=== PATIENT | female | born 1950 | race Caucasian/White ===

== ENCOUNTER → 2017-08-01 | Outpatient (CLI) | payer MEDICARE | LOC: COL.RAD 11:07 | DX: I65.23 Occlusion and stenosis of bilateral carotid arteries (principal); Z95.828 Presence of other vascular implants and grafts | CPT/HCPCS: Q9967 ==

== ENCOUNTER → 2018-02-15 | Outpatient (CLI) | payer MEDICARE, MEDICAID ==
[2018-02-15 23:31] LABS: FOLATE (FOLIC ACID) 8.1 ng/mL (7.0-31.4)
== END ==
LOC: COL.LAB 10:38
PROVIDERS: Psychiatry & Neurology Neurology
DX: G62.9 Polyneuropathy, unspecified (principal)

== ENCOUNTER → 2018-03-01 | Outpatient (CLI) | payer MEDICARE, MEDICAID ==
[~2018-03-01] VITALS: Ht 157.5 cm; Wt 76.4 kg
[~2018-03-01] MED LIST: ASPIRIN 81M81 MG/TA2 PO; COZAAR100 MG PO; MASON NATURAL2000 IU; NORVASC 5MG5 MG/TAB PO; PLAVIX 75MG TAB75 MG PO; SYNTHROID0.075 MG/T PO; TOPROL XL 25MG25 MG PO; ZOVIRAX 200MG200 MG PO
[2018-03-01 12:33] VITALS: BP 156/79; PULSE 66
[2018-03-01 14:10] VITALS: BP 163/94; PULSE 60
== END ==
LOC: COL.RAD 02-28 13:00
DX: M51.26 Other intervertebral disc displacement, lumbar region (principal)
CPT/HCPCS: J3301

== ENCOUNTER 2018-04-14 12:33 | Emergency (ER) | payer MEDICARE, MEDICAID ==
[~2018-04-14] VITALS: Ht 157.5 cm; Wt 71.4 kg
[2018-04-14 12:39] VITALS: BP 115/60; TEMP 98.3
[2018-04-14] MEDS ORDERED: PREDNISONE20 MG PO (13:12)
[2018-04-14] MEDS ORDERED: DOXYCYCLINE 10100 MG PO (13:12)
[2018-04-14 13:31] LABS: BASO % 0.3 % (0.0-2.0); EOS % 0.2 % (0-4.0); GRAN # 5.7 (1.4-6.5); GRAN % 64.2 % (42.2-75.2); HEMOGLOBIN 12.8 g/dl (12.5-16.0); LYMPH # 2.3 (1.2-3.4); LYMPH % 25.5 % (20.0-51.0); MEAN CELL VOLUME 96 fl (80.0-100.0); MEAN CORPUSCULAR HEMOGLOBIN 31 pg (27.0-31.0); MEAN CORPUSCULAR HGB CONC 33 g/dl (33.0-37.0); MEAN PLATELET VOLUME 10.1 fl (7.4-10.4); MONO # 0.8 (0.1-0.6); MONO % 9.2 % (1.7-9.3); PLATELET COUNT 248 K/mm3 (130-400); RED BLOOD COUNT 4.08 M/mm3 (4.10-5.30); REDCELL DISTRIBUTION WIDTH-CV 12.6 % (11.5-14.5)
[2018-04-14 13:42] LABS: ALBUMIN 3.9 gm/dL (3.5-5.0); BILIRUBIN,TOTAL 0.5 mg/dL (0.0-1.0); CALCIUM 9.1 mg/dL (8.4-10.2); CREATININE, serum 1.39 mg/dL (0.52-1.25); POTASSIUM 4.2 mmol/L (3.4-5.0); TOTAL PROTEIN 7.1 gm/dL (6.4-8.2)
[2018-04-14 14:23] VITALS: PULSE 80
== END 2018-04-14 14:23 | disposition home or self-care (01) ==
LOC: COL.ER 12:33
PROVIDERS: Emergency Medicine
DX: J20.9 Acute bronchitis, unspecified (principal); I25.10 Atherosclerotic heart disease of native coronary artery without angina pectoris; Z87.891 Personal history of nicotine dependence; Z95.1 Presence of aortocoronary bypass graft
CPT/HCPCS: J2405; J7030; J7512

== ENCOUNTER → 2020-05-01 | Outpatient (CLI) | payer MEDICARE, MEDICAID ==
[~2020-05-01] MED LIST changes: +DOXYCYCLINE 10100 MG PO; +PREDNISONE20 MG PO; +TUSS PO
== END ==
LOC: COL.RAD
DX: M51.26 Other intervertebral disc displacement, lumbar region (principal)

== ENCOUNTER → 2020-05-04 | Outpatient (CLI) | payer MEDICARE, MEDICAID ==
[~2020-05-04] VITALS: Ht 157.5 cm; Wt 78.0 kg
[2020-05-04 09:10] VITALS: BP 157/82; PULSE 63
[2020-05-04 10:45] VITALS: BP 170/80; PULSE 65
== END ==
LOC: COL.RAD 09:14
DX: M51.26 Other intervertebral disc displacement, lumbar region (principal); M51.36 Other intervertebral disc degeneration, lumbar region
CPT/HCPCS: J3301

== ENCOUNTER 2020-08-19 14:53 | Emergency (ER) | payer MEDICARE, MEDICAID ==
[~2020-08-19] VITALS: Ht 157.5 cm; Wt 69.5 kg
[~2020-08-19 14:53] MED LIST changes: -TUSS PO
[2020-08-19 15:15] VITALS: TEMP 97.8
[2020-08-19 16:14] LABS: BASO % 0.6 % (0.0-2.0); EOS # 0.2 (0.0-0.7); GRAN # 3.8 (1.4-6.5); GRAN % 54.8 % (42.2-75.2); HEMATOCRIT 41.9 % (37.0-47.0); HEMOGLOBIN 13.5 g/dl (12.5-16.0); LYMPH # 2.3 (1.2-3.4); MEAN CELL VOLUME 95 fl (80.0-100.0); MEAN CORPUSCULAR HEMOGLOBIN 31 pg (27.0-31.0); MEAN CORPUSCULAR HGB CONC 32 g/dl (33.0-37.0); MEAN PLATELET VOLUME 10.6 fl (7.4-10.4); MONO # 0.6 (0.1-0.6); MONO % 8.3 % (1.7-9.3); PLATELET COUNT 224 K/mm3 (130-400); RED BLOOD COUNT 4.41 M/mm3 (4.10-5.30); REDCELL DISTRIBUTION WIDTH-CV 12.7 % (11.5-14.5)
[2020-08-19 16:28] LABS: ALANINE AMINOTRANSFERASE 72 U/L (4-34); ALKALINE PHOSPHATASE 71 U/L (50-136); ANION GAP 7 mmol/L (7-16); AST,SGOT 62 U/L (15-37); BILIRUBIN,TOTAL 0.6 mg/dL (0.0-1.0); BLOOD UREA NITROGEN 16 mg/dL (7-17); CALCIUM 9.7 mg/dL (8.4-10.2); CARBON DIOXIDE 25 mmol/L (22-30); CHLORIDE 108 mmol/L (98-107); CREATININE, serum 1.03 (0.52-1.25); GLUCOSE 104 mg/dL (74-106); SODIUM 139 mmol/L (137-145); TOTAL PROTEIN 7.2 gm/dL (6.4-8.2)
[2020-08-19 16:42] LABS: TROPONIN-I < 0.012 ng/mL (0.000-0.035)
[2020-08-19] MEDS ORDERED: PREDNISONE20 MG PO (17:50)
[2020-08-19] MEDS ORDERED: TUSS PO ×2 (17:50→18:53)
[2020-08-19 18:09] VITALS: BP 147/81; PULSE 78
== END 2020-08-19 18:17 | disposition home or self-care (01) ==
LOC: COL.ER 14:53
PROVIDERS: Physician Assistant
DX: J42 Unspecified chronic bronchitis (principal); Z95.1 Presence of aortocoronary bypass graft; Z20.822 Contact with and (suspected) exposure to COVID-19; Z91.14 Patient's other noncompliance with medication regimen; Z95.5 Presence of coronary angioplasty implant and graft; Z87.891 Personal history of nicotine dependence; Z79.899 Other long term (current) drug therapy

== ENCOUNTER 2020-08-31 18:19 | Emergency (ER) | payer MEDICARE, MEDICAID ==
[~2020-08-31] VITALS: Ht 157.5 cm; Wt 76.1 kg
[~2020-08-31 18:19] MED LIST changes: +TUSS PO
[2020-08-31 20:27] LABS: BASO % 0.4 % (0.0-2.0); EOS # 0.1 (0.0-0.7); EOS % 1.1 % (0-4.0); GRAN # 5.8 (1.4-6.5); GRAN % 65.1 % (42.2-75.2); HEMATOCRIT 40.1 % (37.0-47.0); HEMOGLOBIN 12.9 g/dl (12.5-16.0); LYMPH # 1.9 (1.2-3.4); LYMPH % 21.2 % (20.0-51.0); MEAN CELL VOLUME 96 fl (80.0-100.0); MEAN CORPUSCULAR HEMOGLOBIN 31 pg (27.0-31.0); MEAN CORPUSCULAR HGB CONC 32 g/dl (33.0-37.0); MEAN PLATELET VOLUME 11.4 fl (7.4-10.4); MONO # 1.1 (0.1-0.6); MONO % 11.9 % (1.7-9.3); PLATELET COUNT 208 K/mm3 (130-400); REDCELL DISTRIBUTION WIDTH-CV 12.6 % (11.5-14.5)
[2020-08-31 20:36] LABS: COLLECTION METHOD CATHETER
[2020-08-31 20:48] LABS: ALANINE AMINOTRANSFERASE 79 U/L (4-34); ALBUMIN 4.1 gm/dL (3.5-5.0); ALKALINE PHOSPHATASE 86 U/L (50-136); ANION GAP 8 mmol/L (7-16); AST,SGOT 57 U/L (15-37); BLOOD UREA NITROGEN 23 mg/dL (7-17); CALCIUM 9.5 mg/dL (8.4-10.2); CARBON DIOXIDE 23 mmol/L (22-30); CHLORIDE 106 mmol/L (98-107); CREATININE, serum 1.31 (0.52-1.25); GLUCOSE 100 mg/dL (74-106); POTASSIUM 4.5 mmol/L (3.4-5.0); SODIUM 137 mmol/L (137-145); TOTAL PROTEIN 7.9 gm/dL (6.4-8.2)
[2020-08-31 20:51] LABS: MUCOUS Present /lpf; PH 5 (5-8); SQUAMOUS EPITHELIAL 0-2 /hpf; URINE APPEARANCE Hazy; URINE BACTERIA None Seen /hpf; URINE BILIRUBIN Negative (NEGATIVE); URINE BLOOD Negative (NEGATIVE); URINE COLOR Yellow; URINE GLUCOSE Negative (NEGATIVE); URINE KETONE Negative (NEGATIVE); URINE LEUKOCYTE ESTERASE Negative (NEGATIVE); URINE NITRATE Negative (NEGATIVE); URINE PROTEIN(semi-quant) Negative (NEGATIVE); URINE RBC 0-2 /hpf; URINE UROBILINOGEN >=4.0 mg/dL (NEGATIVE)
[2020-08-31 21:19] LABS: TSH w REFLEX 0.861 uIU/mL (0.465-4.680)
[2020-08-31 21:25] LABS: TROPONIN-I < 0.012 ng/mL (0.000-0.035)
[2020-08-31 22:19] VITALS: TEMP 97.6
[2020-08-31 23:40] VITALS: BP 1296/69; PULSE 66
== END 2020-08-31 23:45 | disposition home or self-care (01) ==
LOC: COL.ER 18:19
PROVIDERS: Personal Emergency Response Attendant
DX: E86.0 Dehydration (principal); R07.9 Chest pain, unspecified; R05 Cough; R42 Dizziness and giddiness; R06.02 Shortness of breath; R79.0 Abnormal level of blood mineral; I25.10 Atherosclerotic heart disease of native coronary artery without angina pectoris; I10 Essential (primary) hypertension; E07.9 Disorder of thyroid, unspecified; Z87.891 Personal history of nicotine dependence; Z88.6 Allergy status to analgesic agent; Z79.02 Long term (current) use of antithrombotics/antiplatelets; Z79.899 Other long term (current) drug therapy; Z79.890 Hormone replacement therapy; Z79.82 Long term (current) use of aspirin; Z20.822 Contact with and (suspected) exposure to COVID-19
CPT/HCPCS: J7030; Q9967

== ENCOUNTER → 2021-10-06 | Outpatient (CLI) | payer MEDICARE, MEDICAID ==
[~2021-10-06] VITALS: Ht 157.5 cm; Wt 67.4 kg
[2021-10-06 12:58] VITALS: BP 136/64; PULSE 58; TEMP 98
[2021-10-06 14:15] VITALS: BP 145/54; PULSE 57
== END ==
LOC: COL.RAD 12:23
DX: M51.26 Other intervertebral disc displacement, lumbar region (principal)
CPT/HCPCS: J3301

== ENCOUNTER → 2021-11-03 | Outpatient (CLI) | payer MEDICARE, MEDICAID ==
[2021-11-03] VITALS (7 sets, daily range): BP systolic 127–157; BP diastolic 65–72; PULSE 59–94; TEMP 97.8
[~2021-11-03] VITALS: Ht 157.6 cm; Wt 67.7 kg
== END ==
LOC: COL.CARD 09:28
DX: R07.9 Chest pain, unspecified (principal); I73.9 Peripheral vascular disease, unspecified
CPT/HCPCS: A9500; J2785

== ENCOUNTER → 2021-12-15 | Outpatient (CLI) | payer MEDICARE, MEDICAID | LOC: MC.RAD 10:44 | DX: Z12.31 Encounter for screening mammogram for malignant neoplasm of breast (principal) ==

== ENCOUNTER 2022-05-24 00:35 | Observation (INO) | payer MEDICARE, MEDICAID ==
[~2022-05-24] VITALS: Ht 157.5 cm; Wt 73.3 kg
[2022-05-24 00:52] LABS: HEMATOCRIT 43.4 % (37.0-47.0); HEMOGLOBIN 14.7 g/dl (12.5-16.0); MEAN CELL VOLUME 93 fl (80.0-100.0); MEAN CORPUSCULAR HEMOGLOBIN 32 pg (27-31); MEAN CORPUSCULAR HGB CONC 34 g/dl (33.0-37.0); MEAN PLATELET VOLUME 10.2 fl (7.4-10.4); PLATELET COUNT 277 K/mm3 (130-400); RED BLOOD COUNT 4.66 M/mm3 (4.10-5.30); REDCELL DISTRIBUTION WIDTH-CV 13.6 % (11.5-14.5)
[2022-05-24 01:01] LABS: INR 0.9 (0.8-3.0); PROTHROMBIN TIME 10.4 SECONDS (9.7-12.8)
[2022-05-24 01:04] LABS: PARTIAL THROMBOPLASTIN TIME 32.8 SECONDS (26.0-37.0)
[2022-05-24 01:12] LABS: ALANINE AMINOTRANSFERASE 18 U/L (0-55); ALBUMIN 4.3 gm/dL (3.4-4.8); ALKALINE PHOSPHATASE 65 U/L (40-150); ANION GAP 11 mmol/L (7-16); AST,SGOT 18 U/L (5-34); BAND 2 % (0-10); BILIRUBIN,TOTAL 0.3 mg/dL (0.2-1.2); BLOOD UREA NITROGEN 19 mg/dL (10-20); CALCIUM 9.9 mg/dL (8.4-10.2); CARBON DIOXIDE 23 mmol/L (23-31); CHLORIDE 106 mmol/L (98-107); CREATININE, serum 1.07 mg/dL (0.57-1.11); EOSINOPHIL 2 % (0-4); GLUCOSE 121 mg/dL (70-99); LYMPHOCYTE 44 % (20.0-51.0); NEUTROPHILS 45 % (42.0-75.2); PLATELET ESTIMATE NORMAL (NORMAL); POTASSIUM 3.6 mmol/L (3.5-4.5); SODIUM 140 mmol/L (136-145); TOTAL PROTEIN 7.5 gm/dL (6.2-8.1)
[2022-05-24 01:18] LABS: TROPONIN-I < 0.010 ng/mL (0.00-0.033)
--- NOTE | 2022-05-24 06:04 | NUR ---
PATIENT ADMITTED FROM ED. PATIENT [id number]. VITALS STABLE. PATIENT DENIES PAIN. PATIENT NPO AND VERBALIZES UNDERSTANDING. NO FURTHER QUESTIONS OR CONCERNS AT THIS TIME.
[2022-05-24 06:41] LABS: BASO # 0.1 K/mm3 (0.0-0.2); BASO % 0.7 % (0.0-2.0); EOS # 0.2 K/mm3 (0.0-0.7); EOS % 2.6 % (0.0-4.0); GRAN # 4.1 K/mm3 (1.4-6.5); GRAN % 50.5 % (42.2-75.2); HEMATOCRIT 38.7 % (37.0-47.0); HEMOGLOBIN 12.8 g/dl (12.5-16.0); LYMPH # 3.1 K/mm3 (1.2-3.4); LYMPH % 37.8 % (20.0-51.0); MEAN CELL VOLUME 95 fl (80.0-100.0); MEAN CORPUSCULAR HEMOGLOBIN 31 pg (27-31); MEAN CORPUSCULAR HGB CONC 33 g/dl (33.0-37.0); MEAN PLATELET VOLUME 10.8 fl (7.4-10.4); MONO # 0.7 K/mm3 (0.1-0.6); MONO % 8.2 % (1.7-9.3); PLATELET COUNT 234 K/mm3 (130-400); RED BLOOD COUNT 4.08 M/mm3 (4.10-5.30); REDCELL DISTRIBUTION WIDTH-CV 13.5 % (11.5-14.5)
[2022-05-24 07:11] LABS: TROPONIN-I 6 HR POST INITIAL 0.02 ng/mL (0.00-0.033)
[2022-05-24 07:16] LABS: CALCIUM 9.7 mg/dL (8.4-10.2); CREATININE, serum 0.89 mg/dL (0.57-1.11); POTASSIUM 4.5 mmol/L (3.5-4.5)
[2022-05-24 07:54] VITALS: BP 147/56; PULSE 54; TEMP 97.9
--- NOTE | 2022-05-24 08:30 | NUR ---
Pt is laying in bed. Morning medications administered per eMAR. Shift assessment completed. Telemetry remains on. INT in R wrist in place. Pt denies CP or SOB at this time. Call light within reach.
[2022-05-24 11:15] VITALS: BP 124/67; PULSE 69; TEMP 97.4
--- NOTE | 2022-05-24 15:02 | NUR ---
Pt discharge instructions given. All questions answered. INT in R wrist discontinued with catheter tip intact.
--- NOTE | 2022-05-24 15:08 | NUR ---
Pt escorted out of facility via wheelchair by NANCY Ralph.
--- NOTE | 2022-05-24 15:55 | NUR ---
Initial visit; Patient preparing to leave, Meter Calibrator talked briefly with her and wished her well and offered God's blessings.
== END 2022-05-24 15:08 | disposition home or self-care (01) ==
LOC: COL.ER 00:35 → MEDICAL 02:24
PROVIDERS: Emergency Medicine; Student in an Organized Health Care Education/Training Program; ADMIT Student in an Organized Health Care Education/Training Program
DX: I48.0 Paroxysmal atrial fibrillation (principal); I25.10 Atherosclerotic heart disease of native coronary artery without angina pectoris; I25.2 Old myocardial infarction; I10 Essential (primary) hypertension; E03.9 Hypothyroidism, unspecified; K04.7 Periapical abscess without sinus; I73.9 Peripheral vascular disease, unspecified; Z95.1 Presence of aortocoronary bypass graft; Z79.899 Other long term (current) drug therapy; Z79.890 Hormone replacement therapy; F17.210 Nicotine dependence, cigarettes, uncomplicated; Z98.890 Other specified postprocedural states; Z79.02 Long term (current) use of antithrombotics/antiplatelets; Z79.82 Long term (current) use of aspirin
CPT/HCPCS: G0378; J1650

== ENCOUNTER 2023-11-05 15:48 | Emergency (ER) | payer MEDICARE, MEDICAID ==
[~2023-11-05] VITALS: Ht 157.5 cm; Wt 71.8 kg
[2023-11-05 15:52] VITALS: TEMP 97.2
[2023-11-05 16:03] LABS: BASO # 0.1 K/mm3 (0.0-0.2); BASO % 0.7 % (0.0-2.0); EOS # 0.3 K/mm3 (0.0-0.7); EOS % 2.4 % (0.0-4.0); GRAN % 65.8 % (42.2-75.2); HEMATOCRIT 42.3 % (37.0-47.0); LYMPH # 2.5 K/mm3 (1.2-3.4); LYMPH % 23.8 % (20.0-51.0); MEAN CELL VOLUME 94 fl (80.0-100.0); MEAN CORPUSCULAR HEMOGLOBIN 31 pg (27-31); MEAN CORPUSCULAR HGB CONC 33 g/dl (33.0-37.0); MEAN PLATELET VOLUME 10.3 fl (7.4-10.4); MONO # 0.8 K/mm3 (0.1-0.6); PLATELET COUNT 316 K/mm3 (130-400); RED BLOOD COUNT 4.48 M/mm3 (4.10-5.30); REDCELL DISTRIBUTION WIDTH-CV 13.2 % (11.5-14.5)
[2023-11-05 16:08] LABS: PROTHROMBIN TIME 10.9 SECONDS (9.7-12.8)
[2023-11-05] MEDS ORDERED: Amiodarone 450 MG in D5W Excel 250 ML IV SCH ×2 (16:13→22:13)
[2023-11-05 16:22] LABS: ALANINE AMINOTRANSFERASE 23 U/L (0-55); ALBUMIN 3.8 g/dL (3.4-4.8); ALKALINE PHOSPHATASE 62 U/L (40-150); ANION GAP 12 mmol/L (7-16); AST,SGOT 18 U/L (5-34); BILIRUBIN,TOTAL 0.4 mg/dL (0.2-1.2); BLOOD UREA NITROGEN 32 mg/dL (10-20); CALCIUM 9.5 mg/dL (8.4-10.2); CHLORIDE 110 mEq/L (98-107); CREATININE, serum 1.19 mg/dL (0.57-1.11); GLUCOSE 141 mg/dL (70-99); POTASSIUM 4.6 mEq/L (3.5-4.5); SODIUM 141 mEq/L (136-145); TOTAL PROTEIN 7.3 g/dl (6.2-8.1)
[2023-11-05 16:36] LABS: TROPONIN-I < 0.010 ng/mL (0.00-0.033)
[2023-11-05] MEDS ORDERED: TAMBOCOR50 MG PO (16:59)
[2023-11-05] MEDS ORDERED: SYNTHROID0.088 MG/T PO (16:59)
[2023-11-05] MEDS ORDERED: NEXIUM 40MG40 MG PO (17:00)
[2023-11-05] MEDS ORDERED: NORCO 325 MG-51 TAB PO (17:01)
[2023-11-05] MEDS ORDERED: ZOVIRAX 200MG200 MG PO (17:01)
[2023-11-05] MEDS ORDERED: LR 1,000 ML IV ONE (17:15)
[2023-11-05 20:15] VITALS: BP 161/96; PULSE 115
[2023-11-14] MEDS ORDERED: Meclizine 25 MG TAB PO SCH (09:15)
[2023-11-14] MEDS ORDERED: LR 1,000 ML IV SCH (09:15)
[2023-11-14] MEDS ORDERED: Famotidine 20 MG TAB PO SCH (09:15)
== END 2023-11-05 20:29 | disposition short-term general hospital (02) ==
LOC: COL.ER 15:48
PROVIDERS: Emergency Medicine
DX: I48.92 Unspecified atrial flutter (principal)
CPT/HCPCS: J0282; J7060; J7120

== ENCOUNTER → 2023-11-30 | Outpatient (CLI) | payer MEDICARE, MEDICAID ==
[~2023-11-30] MED LIST changes: +NEXIUM 40MG40 MG PO; +NORCO 325 MG-51 TAB PO; +SYNTHROID0.088 MG/T PO; +TAMBOCOR50 MG PO
== END ==
LOC: MC.RAD 14:08
DX: Z12.31 Encounter for screening mammogram for malignant neoplasm of breast (principal)